=== PATIENT | female | born 1985 | race Hispanic/Latino ===

== ENCOUNTER 2018-08-04 08:49 | Outpatient (CLI) | payer OTHER ==
--- NOTE | 2018-08-04 09:52 | MMO ---
Bilateral MAMMO Bilat Diag DDI+SLAVA. CLINICAL HISTORY: Patient is 33 years old and is seen for diagnostic exam and palpable abnormality in the right breast. The patient has the following family history of breast cancer: mother, at age 50. The patient has no personal history of cancer. VIEWS: The views performed were: bilateral craniocaudal with tomosynthesis; bilateral mediolateral oblique with tomosynthesis; and bilateral mediolateral. FILMS COMPARED: The present examination has been compared to a prior imaging study performed at [facility] on 08/04/2018. MAMMOGRAM FINDINGS: The breasts are heterogeneously dense, which could obscure a lesion on mammography. Left breast: There are no suspicious masses, calcifications or areas of architectural distortion. Right breast: Architectural distortion at the palpable marker. In the left breast, there are no suspicious masses, calcifications or areas of architectural distortion. IMPRESSION: FINDING IN THE RIGHT BREAST IS HIGHLY SUGGESTIVE OF MALIGNANCY. AN ULTRASOUND-GUIDED BREAST BIOPSY IS RECOMMENDED. THE RESULTS OF THIS EXAM WERE SENT TO THE PATIENT. ACR BI-RADS Category 5 - Highly suggestive of malignancy - appropriate action should be taken MAMMOGRAPHY NOTE: 1. A negative mammogram report should not delay a biopsy if a dominant of clinically suspicious mass is present. 2. Approximately 10% to 15% of breast cancers are not detected by mammography. 3. Adenosis and dense breasts may obscure an underlying neoplasm.
--- NOTE | 2018-08-04 10:33 | MMO ---
Right Breast MAMMO Unilat Diag DDI RT. CLINICAL HISTORY: Patient is 33 years old and is seen for diagnostic exam. VIEWS: The views performed were: . FILMS COMPARED: The present examination has been compared to a prior imaging study performed at [facility] on 08/04/2018. MAMMOGRAM FINDINGS: The breast is heterogeneously dense, which could obscure a lesion on mammography. Appropriate clip position in right breast. IMPRESSION: FINDING IN THE RIGHT BREAST IS CONFIRMED UTILIZING POST PROCEDURE MAMMOGRAM. THE RESULTS OF THIS EXAM WERE SENT TO THE PATIENT. MAMMOGRAPHY NOTE: 1. A negative mammogram report should not delay a biopsy if a dominant of clinically suspicious mass is present. 2. Approximately 10% to 15% of breast cancers are not detected by mammography. 3. Adenosis and dense breasts may obscure an underlying neoplasm.
--- NOTE | 2018-08-04 11:07 | ULT ---
RIGHT BREAST AND AXILLA ULTRASOUND: COMPARISON: None. TECHNIQUE: Targeted sonographic imaging of the right breast and axilla were performed. After reviewing static i mages, real-time imaging was performed in the presence of the radiologist. FINDINGS: Static and real-time images demonstrate an irregular marginated mass with shadowing involving the rig ht breast measuring 2.5 x 3.3 x 2.5 cm, corresponding to the recent mammographic finding. Subtle hard to differentiate enlarged right axillary lymph nodes may be present. Real-time imaging d oes not allow for adequate visualization to perform an ultrasound-guided biopsy at this time. IMPRESSION: BIRADS category 5, highly suspicious. RECOMMENDATION: Ultrasound-guided biopsy of the right breast is recommended. Results of the study were conveyed to Rebeca Thao 07/27/2018 at 9:38 a.m. CODE CR POS: NIGEL
--- NOTE | 2018-08-04 11:30 | ULT ---
ULTRASOUND GUIDED BIOPSY OF THE RIGHT BREAST: HISTORY: Right breast mass. COMPARISON: None. FINDINGS: Successful ultrasound-guided biopsy of right breast mass. A total of three 14-gauge core biopsy samp les were obtained. The sample was placed directly in formalin. Post biopsy clip was placed. TECHNIQUE: Consent was obtained to perform an ultrasound-guided biopsy of right breast mass. The right breast w as prepped and draped in a sterile fashion. 1% Lidocaine, buffered with sodium bicarbonate, was used for local anesthesia. Under ultrasound guidance, three separate 14-gauge core biopsy samples were o btained. The samples were placed directly in formalin. Post biopsy clip was placed. There are no i mmediate or post procedure complications. Post biopsy mammogram was performed. IMPRESSION: Successful right breast biopsy with ultrasound guidance. Final pathologic diagnosis is pending. POS: NIGEL
== END 2018-08-04 08:50 | disposition home or self-care (01) ==
LOC: BICMAMMO 08:49
PROVIDERS: ATTEND Family Medicine
DX: D05.11 Intraductal carcinoma in situ of right breast (principal); K80.20 Calculus of gallbladder without cholecystitis without obstruction; Z80.3 Family history of malignant neoplasm of breast
CPT/HCPCS: 19083; 19100; 76942; 77066; 88307; 88341; 88342; G0279

== ENCOUNTER 2018-09-03 06:01 | Day surgery (SDC) | payer OTHER ==
[2018-08-27 10:07] VITALS: BMI 28.3
[2018-09-03] MEDS ORDERED: Fentanyl 250 MCG/5 ML VIAL ONE (06:29)
[2018-09-03] MEDS ORDERED: Bupivacaine/Epinephrine 0.25% 30 ML VIAL ONE (06:52)
[2018-09-03] MEDS ORDERED: Midazolam HCl 2 mg/2 ml Vial ONE (07:05)
--- NOTE | 2018-09-03 11:18 | OP ---
DATE OF PROCEDURE: 09/03/2018 PREOPERATIVE DIAGNOSIS: Symptomatic gallstones. POSTOPERATIVE DIAGNOSIS: Symptomatic gallstones. PROCEDURE: Laparoscopic cholecystectomy. ANESTHESIA: General. ESTIMATED BLOOD LOSS: Minimal. COMPLICATIONS: None. SPECIMEN: Gallbladder. FINDINGS: Chronic cholecystitis. PROCEDURE IN DETAIL: The patient was taken to the operating room and laid supine on the operating room table. After general anesthetic was obtained, the abdomen was prepped and draped in a sterile fashion. A curved incision was made below the umbilicus. Cautery was used to dissect down to the umbilical fascia. Umbilical fascia was incised and held up using a Adalberto. The abdominal cavity was entered using a Rox clamp. Holding stitch of Vicryl was placed on each side of the fascia. Woo trocar was placed. High-flow pneumoperitoneum was obtained. An upper midline 5 mm port and 2 right upper quadrant 5 mm ports were placed under direct camera visualization. The gallbladder was retracted from the gallbladder fossa. The peritoneum of the gallbladder was opened anteriorly and posteriorly. The critical view triangle was seen showing only the cystic duct and cystic artery branching from medial to lateral. There were no other branching structures. Two clips were placed proximally on the cystic duct and one laterally. It was cut using laparoscopic scissors. The cystic artery was taken in the same way. Electrocautery was then used to dissect the gallbladder out of the gallbladder fossa. The gallbladder was placed in an Endo catch bag and brought out through the Woo. There was no bleeding or bile in the liver bed. The cystic duct stump and cystic artery stump were intact, without evidence of extravasation or bleeding. All port sites were infiltrated using local anesthesia. All ports were removed under camera visualization. Pneumoperitoneum was let down. The Vicryl was used to close the fascial defect below the umbilicus. All incisions were irrigated and closed using 4-0 Monocryl and Dermabond. The patient was en route to Recovery in stable condition. All instrument counts, needle counts and lap counts were correct. Job ID: [id number]
== END 2018-09-03 10:50 | disposition home or self-care (01) ==
LOC: SDC 06:01
PROVIDERS: ATTEND Surgery
PROC: 0FT44ZZ Resection of Gallbladder, Percutaneous Endoscopic Approach (ICD-10-PCS; principal; 2018-09-03)
DX: K80.10 Calculus of gallbladder with chronic cholecystitis without obstruction (principal); Z79.899 Other long term (current) drug therapy; Z98.890 Other specified postprocedural states
CPT/HCPCS: 88304; J0690; J2250; J3010

== ENCOUNTER 2018-10-09 10:56 | Outpatient (CLI) | payer OTHER ==
[2018-08-27 11:12] LABS: #Basophils 0.1 thou/uL (0.0-0.2); #Eosinphils 0.1 thou/uL (0.0-0.7); #Monocytes 0.6 thou/uL (0.11-0.59); #Neutrophils 2.7 thou/uL (1.40-6.50); %Basophils 0.9 % (0.0-1.0); %Eosinophils 1.8 % (0.0-10.0); %Lymphocytes 37.2 % (21.0-51.0); %Monocytes 10.3 % (0.0-10.0); %Neutrophils 49.9 % (42.0-75.0); Hemoglobin 13.9 g/dL (12.0-16.0); Mean Corpuscular HGB CONC 34.1 g/dL (32.0-36.0); Mean Corpuscular Volume 88.2 fL (78.0-98.0); Mean Platelet Volume 9.1 fL (7.4-10.4); Platelet Count 204 thou/uL (130-400); RBC Distribution Width 10.9 % (11.5-14.5); Red Blood Cell (RBC) Count 4.63 mill/uL (4.20-5.40); White Blood Cell (WBC) Count 5.5 thou/uL (4.8-10.8)
[2018-08-27 11:37] LABS: BHCG - Serum Negative (NEGATIVE); Pregs Control Background? CLEAR/WHITE (CLR/WHITE); Pregs Control Bar Appear? YES (CONTROL BAR)
[2018-08-27 11:47] LABS: ALT (SGPT) 16 U/L (8-55); AST (SGOT) 19 U/L (5-34); Albumin 4.4 g/dL (3.5-5.0); Alkaline Phosphatase 61 U/L (40-150); Anion Gap 11 mmol/L (10-20); BUN (Urea Nitrogen) 12 mg/dL (7.0-18.7); Bilirubin, Direct 0.3 mg/dL (0.1-0.3); Bilirubin, Total 0.8 mg/dL (0.2-1.2); Calc. Creatinine Clearance 0 mL/min (70-130); Calcium 9.3 mg/dL (7.8-10.44); Carbon Dioxide 26 mmol/L (22-29); Chloride 107 mmol/L (98-107); Estimated GFR-MDRD 74; Glucose 80 mg/dL (70-105); Potassium 4.5 mmol/L (3.5-5.1); Protein, Total 7.6 g/dL (6.0-8.3); Sodium 139 mmol/L (136-145)
[2018-10-09 11:40] LABS: #Eosinphils 0.1 thou/uL (0.0-0.7); #Lymphocytes 2.1 thou/uL (1.20-3.40); #Monocytes 0.4 thou/uL (0.11-0.59); #Neutrophils 2.9 thou/uL (1.40-6.50); %Basophils 0.8 % (0.0-1.0); %Eosinophils 1.6 % (0.0-10.0); %Lymphocytes 37.4 % (21.0-51.0); %Monocytes 7.9 % (0.0-10.0); %Neutrophils 52.3 % (42.0-75.0); Hemoglobin 13.7 g/dL (12.0-16.0); Mean Corpuscular HGB CONC 34.1 g/dL (32.0-36.0); Mean Platelet Volume 8.9 fL (7.4-10.4); Platelet Count 188 thou/uL (130-400); RBC Distribution Width 11.2 % (11.5-14.5); Red Blood Cell (RBC) Count 4.56 mill/uL (4.20-5.40); White Blood Cell (WBC) Count 5.6 thou/uL (4.8-10.8)
[2018-10-09 11:51] LABS: BHCG - Serum Negative (NEGATIVE); Pregs Control Background? CLEAR/WHITE (CLR/WHITE); Pregs Control Bar Appear? YES (CONTROL BAR)
[2018-10-09 12:09] LABS: Anion Gap 11 mmol/L (10-20); BUN (Urea Nitrogen) 13 mg/dL (7.0-18.7); Calc. Creatinine Clearance 0 mL/min (70-130); Calcium 9.6 mg/dL (7.8-10.44); Carbon Dioxide 24 mmol/L (22-29); Chloride 107 mmol/L (98-107); Estimated GFR-MDRD 76; Glucose 86 mg/dL (70-105); Potassium 3.9 mmol/L (3.5-5.1); Sodium 138 mmol/L (136-145)
== END 2018-10-09 10:57 | disposition home or self-care (01) ==
LOC: LABBT 10:56
PROVIDERS: ATTEND Surgery
DX: Z01.812 Encounter for preprocedural laboratory examination (principal); K80.20 Calculus of gallbladder without cholecystitis without obstruction
CPT/HCPCS: 80048; 80076; 84703; 85025

== ENCOUNTER 2018-10-15 06:48 | Observation (INO) | payer OTHER ==
[2018-10-09 11:15] VITALS: BMI 28.1
[2018-10-15] MEDS ORDERED: ceFAZolin Sodium (SDC) 2 GM/100 ML BAG ONE (10:14)
[2018-10-15] MEDS ORDERED: Ketorolac Tromethamine 30 MG/ML VIAL ONE (10:14)
--- NOTE | 2018-10-15 10:44 | NM ---
Radionucleotide lymphoscintigraphy right breast HISTORY: Right breast cancer. Upper-outer quadrant. FINDINGS: After explaining the procedure and answering all questions, the anterior aspect of the righ t breast was cleansed with alcohol. A total volume of 1 cc containing 418 uCi technetium 99m filtered sulfur colloid was intradermally in jected at the 12:00, 3:00, 6:00, and 9:00 periareolar positions of the right breast. Injection sites were carefully massaged by the patient and imaging performed. Early images show uptake in a wedge-shaped distribution from the injection sites directed superiorly. At 1 hour, accumulation is apparent over the medial substernal right side of the chest. Patient tolerated the procedure well and was transferred to day surgery in good condition. IMPRESSION: Technically successful lymphoscintigraphy right breast. Internal mammary lymph node appar ently the sentinel lymph node.
[2018-10-15] MEDS ORDERED: Isosulfan Blue 50 MG/5 ML VIAL ONE (11:54)
[2018-10-15] MEDS ORDERED: Midazolam HCl 2 mg/2 ml Vial ONE (11:56)
[2018-10-15] MEDS ORDERED: Fentanyl 250 MCG/5 ML VIAL ONE (11:56)
[2018-10-15] MEDS ORDERED: Morphine 4 MG/ML VIAL SLOW IVP PRN ×2 (17:02)
[2018-10-15] MEDS ORDERED: Dextrose 5% in Water 1,000 ML IV PRN (17:02)
[2018-10-15] MEDS ORDERED: Dextrose 50% Abboject 50 ML SYRINGE SLOW IVP PRN (17:02)
[2018-10-15] MEDS ORDERED: hydrALAZINE 20 MG/ML VIAL SLOW IVP PRN (17:02)
[2018-10-15] MEDS ORDERED: Promethazine HCl 25 MG/ML VIAL IM PRN ×2 (17:02→17:15)
[2018-10-15] MEDS ORDERED: HYDROcodone/Acetaminophen 7.5/325 mg Tablet PO PRN ×2 (17:02)
[2018-10-15] MEDS ORDERED: Ondansetron PF 4 MG/2 ML Vial IVP PRN (17:02)
[2018-10-15] MEDS ORDERED: Promethazine HCl 25 MG/ML VIAL SLOW IVP PRN (17:15)
[2018-10-15] MEDS ORDERED: HYDROmorphone 2 MG/ML VIAL SLOW IVP PRN (17:15)
[2018-10-15] MEDS ORDERED: Ondansetron HCl/PF 4 MG/2 ML Vial IVP PRN (17:15)
[2018-10-15] MEDS ORDERED: Ondansetron PF 4 MG/2 ML Vial ONE (17:22)
[2018-10-15] MEDS ORDERED: Promethazine HCl 25 MG/ML VIAL ONE (17:42)
[2018-10-15] MEDS ORDERED: Fentanyl 100 MCG/2 ML VIAL ONE (17:45)
[2018-10-15] MEDS: Ketorolac Tromethamine 30 MG/ML VIAL IVP SCH (20:03)
[2018-10-15] MEDS: D5 1/2 NS w/20 mEq KCL 1,000 ML IV SCH (20:08)
[2018-10-16] MEDS: Famotidine 20 MG TAB PO SCH ×2 (00:30→09:02)
[2018-10-16] MEDS: Ketorolac Tromethamine 30 MG/ML VIAL IVP SCH ×2 (00:30→06:11)
[2018-10-16 05:43] LABS: White Blood Cell (WBC) Count 9.8 thou/uL (4.8-10.8)
[2018-10-16 05:44] LABS: #Eosinphils 0.1 thou/uL (0.0-0.7); #Lymphocytes 2.5 thou/uL (1.20-3.40); #Monocytes 0.7 thou/uL (0.11-0.59); #Neutrophils 6.4 thou/uL (1.40-6.50); %Basophils 0.5 % (0.0-1.0); %Eosinophils 1.2 % (0.0-10.0); %Lymphocytes 25.7 % (21.0-51.0); %Monocytes 7.2 % (0.0-10.0); %Neutrophils 65.4 % (42.0-75.0); Hemoglobin 10.4 g/dL (12.0-16.0); Mean Corpuscular HGB CONC 33.5 g/dL (32.0-36.0); Mean Corpuscular Hemoglobin 30.3 pg (27.0-31.0); Mean Corpuscular Volume 90.5 fL (78.0-98.0); Platelet Count 135 thou/uL (130-400); RBC Distribution Width 11.1 % (11.5-14.5); Red Blood Cell (RBC) Count 3.45 mill/uL (4.20-5.40)
[2018-10-16 07:40] VITALS: BP 88/59; TEMP 98
--- NOTE | 2018-10-16 07:40 | PDOC.GSPN ---
Surgery Progress Note: Subj - Subjective Narrative: Ms. Kwan is a 33 female 1 day s/p bilateral nipple sparing mastectomy with SNB for invasive ductal CA of the right breast. Pt describes bilateral sharp stabbing pain on the lateral edges of her thorax and rates it has 2/10 when sitting and 6/10 when trying to sit up. Ms. Kwan is using only Toradol for pain relief and believes it helps "a bit", making it tolerable. Diet is full regular and patient is tolerating with increased appetite, stating she was planning on ordering a full breakfast this morning. Urinating and BMs without difficulty, but does endorse that her urine has a bluish color. Pt walked a lap of the floor last night and is up moving around in her room. Using incentive spirometry with no difficulties. Denies fever, chills, nausea, vomiting, diarrhea, edema at this time. Per nursing, MARIANO drainage over last 12 hours was MARIANO 1: 80ml, MARIANO 2: 90ml and MARIANO 3: 60ml of translucent sanguinous fluid. Surgery Progress Note: Obj - Vital signs Vital signs: Vital Signs - Most Recent Temp Pulse Resp BP Pulse Ox 98.3 F 80 16 90/56 L 99 10/16/18 04:22 10/16/18 04:22 10/16/18 04:22 10/16/18 04:22 10/16/18 04:22 - Physical Exam General: well developed, well nourished, other (Pt was awake and sitting upright in bed in no apparent distress. A/O X 3) Cardiovascular: regular rate and rhythm, no murmur Respiratory: clear to auscultation (without wheezing, rales, rhonchi, or rubs) Wound: dressing clean,dry,intact (3 [address]IAN[address] dra[address] are in place with translucent sanguinous fluid present - quantities described above.) Additional exam: No pretibial/pedal edema, or lymphdema noted. Surgery Progress Note: Results - Labs Result Diagrams: 10/16/18 05:10 Lab results: Laboratory Results - last 24 hr 10/16/18 05:10 WBC 9.8 RBC 3.45 L Hgb 10.4 L Hct 31.2 L MCV 90.5 MCH 30.3 MCHC 33.5 RDW 11.1 L Plt Count 135 MPV 9.0 Neutrophils % 65.4 Lymphocytes % 25.7 Monocytes % 7.2 Eosinophils % 1.2 Basophils % 0.5 Neutrophils # 6.4 Lymphocytes # 2.5 Monocytes # 0.7 H Eosinophils # 0.1 Basophils # 0.0 Surgery Progress Note: A/P - Problem (1) Invasive ductal carcinoma of right breast Current Visit: Yes Code(s): C50.911 - MALIGNANT NEOPLASM OF UNSP SITE OF RIGHT FEMALE BREAST Status: Acute - Plan Plan: Continue toradol q6hr IVP for pain, keep [place] on medication list in case pain increases. Maintain regular diet and encourage eating, incentive spirometry, and for pt to ambulate as much as possible. For now maintain IV fluids at 70mls /hr, will adjust as pt diet improves. Continue to record drain output and monitor for post-operative complications.
[2018-10-16] MEDS: D5 1/2 NS w/20 mEq KCL 1,000 ML IV SCH (09:02)
--- NOTE | 2018-10-19 09:06 | OP ---
DATE OF PROCEDURE: 10/15/2018 PREOPERATIVE DIAGNOSIS: Right breast cancer. POSTOPERATIVE DIAGNOSIS: Right breast cancer. PROCEDURE PERFORMED: Right axillary sentinel lymph node biopsy (with findings of positive sentinel lymph nodes on touch prep), conversion to right axillary lymph node dissection, bilateral nipple-sparing mastectomy. ANESTHESIA: General endotracheal. INDICATIONS: The patient is a 33-year-old white female. She has biopsy-proven breast cancer of the right breast located in the upper outer quadrant, but near the edge of the areola. She has undergone extensive evaluation preoperatively. She has elected to proceed with a bilateral nipple-sparing mastectomy with hopes of postoperative reconstruction. She has been seen by Dr. Wan, in regard to this. There are no gross findings of positive lymph nodes. Therefore, sentinel lymph node biopsy is planned. DESCRIPTION OF PROCEDURE: Informed consent was obtained, the patient was taken to the operating room, where general endotracheal anesthesia was obtained with the patient in the supine position. Before going to the operating room, she had right breast lymphoscintigraphy performed, which revealed right axillary sentinel lymph nodes. I infiltrated 3 mL of Lymphazurin into the periareolar subdermal tissue and massaged the right breast for 5 minutes before proceeding. The breast was then prepped with ChloraPrep and draped in sterile fashion. The left breast and axilla were prepped as well. Attention was turned first to the right axilla. An inferior axillary incision was created. Dissection was carried through skin and subcutaneous tissue. Neoprobe was utilized to identify areas of maximum radio intensity. I additionally was able to trace two blue-stained lymphatics into the axilla. The blue staining and the radioactivity helped identify four separate lymph nodes, which were all both blue-stained and radioactive. These were all removed intact, and the investing tissues were ligated between clamps and 3-0 silk ties. There were no other areas of significant radioactivity left within the axilla. None of these lymph nodes had a worrisome gross appearance before being submitted. I then proceeded to the left mastectomy, which will be dictated momentarily. During the course of that mastectomy, I was notified that at least one of the sentinel lymph nodes was positive for malignancy. Given that she had a mastectomy and would not necessarily be getting radiation, I elected to proceed to with a full axillary lymph node dissection. Although, chronologically the lymph node dissection was performed after the left nipple-sparing mastectomy, it will be dictated here. I re-opened the right axillary incision. Dissection was carried through skin and subcutaneous tissue. Flaps were raised superiorly, inferiorly, and anteriorly down to the chest wall. Dissection was carried up along the pectoralis to identify the axillary vein. On the inferior aspect of the vein, I was able to identify both the long thoracic and thoracodorsal nerves. These were each carefully spared of damage throughout the case. The fatty and lymphatic tissue were carefully dissected, dividing any lymphatics between hemoclips. The intercostal brachial nerve was identified and spared. All fatty and lymphatic tissues were swept inferiorly out of the breast. Because of the prior sentinel node biopsy, the axillary node dissection was passed off the field in two separate components. At least one of the lymph nodes within the upper axilla did appear to be concerning for metastatic disease. The axilla was irrigated, and all irrigant was aspirated. Hemostasis was meticulous. The wound was closed using 3-0 and 4-0 Monocryl. A #19 round fluted drain had been placed within the wound and brought out inferiorly and secured with 3-0 nylon suture. As mentioned earlier, the left breast was addressed first as this was cancer-free. Both nipple-sparing mastectomies were performed in an identical fashion. A curvilinear inframammary incision was created in the inframammary crease, which had been marked preoperatively. This was about a 10 cm incision that began about 7 cm from the midline bilaterally. Dissection was carried through skin and subcutaneous tissue. The breast tissue was grasped with Allis clamps and careful dissection was carried out superiorly to elevate the breast tissue off the underlying fascia and pectoralis. Dissection was carried superiorly to the borders of the breast tissue, which had been marked on the patient's chest wall. At this point, Ken clamps were placed on the skin, and a careful dissection was carried out to dissect the skin and subcutaneous fat off the underlying breast tissue. This was carried superiorly, and at the appropriate juncture, was carried through the subareolar glandular tissue. At the apex, it was carried back down to the chest wall and the breast tissue was removed from within the operative site intact. It was marked for orientation with sutures. The wound was irrigated with saline and all irrigant was aspirated. A #19 round fluted drain was placed within the wound and brought out laterally and inferiorly. The skin incision was closed with 3-0 and 4-0 Monocryl suture. Dermabond was placed externally. Attention was then turned to the right breast. Again, this was performed in a mirror-image fashion to the left breast. The only difference being that at the appropriate juncture, I dissected a disk of tissue from underneath the nipple and submitted this for frozen section. This was found to be without evidence of malignancy. Additionally, I was able to palpate the malignancy just lateral to the nipple and areola, and careful dissection was carried out at this juncture to try to maintain a plane of cancer-free tissue superficial to the malignancy to avoid positive margins. The specimen was removed intact as well. It was also tagged for orientation. The wound was irrigated with sterile water and meticulous hemostasis obtained with electrocautery. The wound was again closed in layers with 3-0 and 4-0 Monocryl after a drain had been placed. Dermabond was then applied to all three skin incisions. Dry gauze dressing was placed over the three drain exit sites. Left gauze was placed across the chest wall and this was held in place using the Yuli wrap. There were no complications. Blood loss was minimal. The patient tolerated the procedure well, and was taken to recovery room in stable condition. Job ID: [id number]
== END 2018-10-16 10:45 | disposition home or self-care (01) ==
LOC: SDC 06:48 → SURG B 17:49
PROVIDERS: ADMIT Specialist; ATTEND Specialist
PROC: 07B50ZZ Excision of Right Axillary Lymphatic, Open Approach (ICD-10-PCS; principal; 2018-10-16)
PROC: 0HTV0ZZ Resection of Bilateral Breast, Open Approach (ICD-10-PCS; 2018-10-16)
DX: C50.411 Malignant neoplasm of upper-outer quadrant of right female breast (principal); Z17.0 Estrogen receptor positive status [ER+]
CPT/HCPCS: 36415; 78195; 85025; 88305; 88307; 88309; 88331; 88334; 88342; 96361; 96374; 96376; A9541; G0378; J0131; J0690; J1885; J2250; J2270; J2405; J2550; J3010; Q9968

== ENCOUNTER 2018-11-24 07:24 | Day surgery (SDC) | payer OTHER ==
[2018-11-23 09:51] VITALS: BMI 27.6
[2018-11-24 08:01] LABS: #Eosinphils 0.1 thou/uL (0.0-0.7); #Lymphocytes 1.5 thou/uL (1.20-3.40); #Monocytes 0.5 thou/uL (0.11-0.59); #Neutrophils 5.3 thou/uL (1.40-6.50); %Basophils 0.5 % (0.0-1.0); %Eosinophils 1.7 % (0.0-10.0); %Lymphocytes 20.5 % (21.0-51.0); %Monocytes 6.9 % (0.0-10.0); %Neutrophils 70.4 % (42.0-75.0); Hemoglobin 12.1 g/dL (12.0-16.0); Mean Corpuscular HGB CONC 34.7 g/dL (32.0-36.0); Mean Corpuscular Hemoglobin 30.5 pg (27.0-31.0); Mean Corpuscular Volume 87.7 fL (78.0-98.0); Mean Platelet Volume 7.7 fL (7.4-10.4); Platelet Count 286 thou/uL (130-400); RBC Distribution Width 10.6 % (11.5-14.5); Red Blood Cell (RBC) Count 3.98 mill/uL (4.20-5.40); White Blood Cell (WBC) Count 7.5 thou/uL (4.8-10.8)
[2018-11-24 08:17] LABS: Anion Gap 12 mmol/L (10-20); BUN (Urea Nitrogen) 10 mg/dL (7.0-18.7); Calc. Creatinine Clearance 118 mL/min (70-130); Calcium 9.1 mg/dL (7.8-10.44); Carbon Dioxide 25 mmol/L (22-29); Chloride 105 mmol/L (98-107); Estimated GFR-MDRD 84; Glucose 95 mg/dL (70-105); Sodium 138 mmol/L (136-145)
[2018-11-24] MEDS ORDERED: Ketorolac Tromethamine 30 MG/ML VIAL ONE (08:21)
[2018-11-24] MEDS ORDERED: Fentanyl 100 MCG/2 ML VIAL ONE (09:15)
[2018-11-24] MEDS ORDERED: Midazolam HCl 2 mg/2 ml Vial ONE (09:15)
[2018-11-24] MEDS ORDERED: Bupivacaine/Epinephrine 0.25% 30 ML VIAL ONE (09:17)
[2018-11-24] MEDS ORDERED: Lidocaine 2% PF 5 ML VIAL ONE (09:17)
[2018-11-24] MEDS ORDERED: Lidocaine 1% (PF) 30 ML VIAL ONE (09:19)
--- NOTE | 2018-11-24 11:12 | RAD ---
Frontal radiograph chest: 11/24/2018 COMPARISON: None HISTORY: Mediport placement FINDINGS: Postoperative clips are seen in the right axillary region. Left subclavian Port-A-Cath pres ent, distal tip overlying the region of the cavoatrial junction. No pneumothorax, pleural fluid, focal consolidation, or alveolar edema. IMPRESSION: Left Port-A-Cath in place.
--- NOTE | 2018-11-25 10:30 | OP ---
DATE OF PROCEDURE: 11/24/2018 PREOPERATIVE DIAGNOSIS: Right breast cancer, right mastectomy infection. PROCEDURE PERFORMED: Left subclavian MediPort placement, incision and drainage of right mastectomy infection. ANESTHESIA: General endotracheal. INDICATIONS: The patient is a 33-year-old female. She has a diagnosis of lymph node positive right breast cancer. She has undergone previous bilateral nipple-sparing mastectomy. She presents at this time for MediPort placement. She also had a fluid collection associated with the right mastectomy site for which an incision and drainage had already been performed. There was evidence of an infection coming from this site with purulent drainage coming from the inferior breast incision. Recommend further drainage while she is under anesthesia. DESCRIPTION OF PROCEDURE: Informed consent was obtained. The patient was taken to the operating room, where general anesthesia was obtained with the patient in supine position. Bilateral chest was prepped with ChloraPrep and draped in sterile fashion. Local anesthetic was infiltrated and large gauge needle was passed under the left clavicle and subclavian vein. Attempt was made to do this in such a fashion that it would not interrupt her left chest tattoo. Guidewire was passed through the needle, and fluoroscopically, confirmed to enter the superior vena cava. Additional local anesthetic was infiltrated and transverse incision was created. Subcutaneous pocket was dissected extending inferiorly. Introducer dilator was passed over the wire under fluoroscopic guidance. The wire and dilator were removed, and the catheter was passed through the introducer. Introducer was removed in the usual peel-apart fashion. Catheter tip was positioned at the atrial caval junction and the catheter was trimmed to appropriate length and secured to the locking hub of the MediPort. The port was placed within the subcutaneous pocket, where it was secured to the pectoral fascia with 2 interrupted sutures of 3-0 Prolene. The wound was closed in layers with 3-0 and 4-0 Monocryl. The port aspirated easily and was flushed with heparinized saline. Dermabond was placed externally. Fluoroscopy demonstrated good position of the port and catheter. Attention was then turned to the right breast. Sutures that had been placed for the previous incision and drainage were removed. The subcutaneous space was inspected, and with a Q-tip, I was able to determine that the pocket extended superiorly and laterally up to 5 cm. Cultures were obtained of the cloudy fluid coming from this area. I then irrigated with peroxide and placed a 0.25-inch [place] drain up to the extent of the drainage and secured with a 3-0 nylon suture. Dry gauze dress was placed externally. There were no complications. The patient tolerated procedure well, was taken to recovery room in stable condition. Job ID: [id number]
== END 2018-11-24 11:40 | disposition home or self-care (01) ==
LOC: SDC 07:24
PROVIDERS: ATTEND Specialist
PROC: 0JH63WZ Insertion of Totally Implantable Vascular Access Device into Chest Subcutaneous Tissue and Fascia, Percutaneous Approach (ICD-10-PCS; principal; 2018-11-24)
PROC: 0H9T0ZZ Drainage of Right Breast, Open Approach (ICD-10-PCS; principal; 2018-11-24)
DX: C50.111 Malignant neoplasm of central portion of right female breast (principal); C77.3 Secondary and unspecified malignant neoplasm of axilla and upper limb lymph nodes; T81.49XA Infection following a procedure, other surgical site, initial encounter; B95.61 Methicillin susceptible Staphylococcus aureus infection as the cause of diseases classified elsewhere; Z17.0 Estrogen receptor positive status [ER+]; Z90.13 Acquired absence of bilateral breasts and nipples
CPT/HCPCS: 36415; 71045; 76000; 80048; 85025; 87070; 87077; 87186; 87205; C1788; J0131; J0690; J1642; J1885; J2001; J2250; J3010